=== PATIENT | male | born 1980 | race African-American/Black ===

== ENCOUNTER 2016-08-23 10:28 | Emergency (ER) | payer MEDICARE ==
[2016-08-23] MEDS ORDERED: Adacel (T-DAP) 0.5 ML VIAL ONE (10:43)
[2016-08-23] MEDS ORDERED: Bacitracin Zinc 1 Packet ONE (10:52)
== END 2016-08-23 11:15 | disposition home or self-care (01) ==
LOC: BURERS 10:28
DX: S61.302A Unspecified open wound of right middle finger with damage to nail, initial encounter (principal); F41.9 Anxiety disorder, unspecified; F32.9 Major depressive disorder, single episode, unspecified; F17.210 Nicotine dependence, cigarettes, uncomplicated; W45.8XXA Other foreign body or object entering through skin, initial encounter
CPT/HCPCS: 90471; 90715

== ENCOUNTER 2020-02-24 10:32 | Emergency (ER) | payer MEDICAID, MEDICARE ==
[2020-02-24 22:09] LABS: SARS-CoV-2 N Gene Positive; SARS-CoV-2 S Gene Positive; SARS-CoV-2 by NAA DETECTED (NotDetected); SARS-CoV-2 orf1ab Positive
[2020-02-24 22:10] LABS: SARS-CoV-2 MS2 Positive
== END 2020-02-24 11:30 | disposition home or self-care (01) ==
LOC: BURERS 10:32
DX: U07.1 COVID-19 (principal)
CPT/HCPCS: 87635; 87804; 99283; U0003

== ENCOUNTER 2021-06-08 12:24 | Emergency (ER) | payer MEDICARE, MEDICAID ==
[2021-06-08] MEDS ORDERED: Iopamidol 370 76% 100 ML VIAL FS ONE (12:25)
[2021-06-08] MEDS ORDERED: Ondansetron PF 4 MG/2 ML Vial ONE (12:39)
[2021-06-08] MEDS ORDERED: Ketorolac Tromethamine 30 MG/ML VIAL ONE (12:39)
[2021-06-08 13:06] LABS: #Basophils 0.1 thou/uL (0.0-0.2); #Eosinphils 0.1 thou/uL (0.0-0.7); #Lymphocytes 1.5 thou/uL (1.20-3.40); #Monocytes 0.4 thou/uL (0.11-0.59); #Neutrophils 3.8 thou/uL (1.40-6.50); %Basophils 1.7 % (0.0-1.0); %Eosinophils 2.2 % (0.0-10.0); %Monocytes 6.9 % (0.0-10.0); %Neutrophils 64.2 % (42.0-75.0); Hemoglobin 13.6 g/dL (14.0-18.0); Mean Corpuscular HGB CONC 33.5 g/dL (32.0-36.0); Mean Corpuscular Hemoglobin 28.1 pg (27.0-31.0); Mean Platelet Volume 7.1 fL (7.4-10.4); Platelet Count 231 thou/uL (130-400); RBC Distribution Width 12.9 % (11.5-14.5); Red Blood Cell (RBC) Count 4.85 mill/uL (4.70-6.10)
[2021-06-08 13:12] LABS: ALT (SGPT) 20 U/L (8-55); AST (SGOT) 24 U/L (5-34); Albumin 3.9 g/dL (3.5-5.0); Alkaline Phosphatase 87 U/L (40-110); Anion Gap 12 mmol/L (10-20); BUN (Urea Nitrogen) 11 mg/dL (8.9-20.6); Bilirubin, Total 0.3 mg/dL (0.2-1.2); CK (CPK) 473 U/L (30-200); Calc. Creatinine Clearance 0 mL/min (70-130); Calcium 8.8 mg/dL (7.8-10.44); Carbon Dioxide 24 mmol/L (22-29); Chloride 106 mmol/L (98-107); Globulin 3.2 g/dL (2.4-3.5); Glucose 130 mg/dL (70-105); Potassium 4.1 mmol/L (3.5-5.1); Protein, Total 7.1 g/dL (6.0-8.3); Sodium 138 mmol/L (136-145)
[2021-06-08] MEDS ORDERED: Orphenadrine Citrate 60 MG/2 ML VIAL ONE (14:28)
[2021-06-08] MEDS ORDERED: Piperacillin/Tazobactam 4.5 GM VIAL ONE (15:06)
[2021-06-08] MEDS ORDERED: Sodium Chloride 0.9% 100 ML ONE (15:07)
[2021-06-08 15:42] LABS: Bilirubin Negative (Negative); Blood, Urine Negative (Negative); Clarity Clear (Clear); Glucose, Urine (Dipstick) Negative (Negative); Ketone, Urine Negative (Negative); Leukocyte Negative (Negative); Nitrite Negative (Negative); Protein, Urine (Dipstick) Negative (Neg-Trace); Urobilinogen 0.2 mg/dL (Less than 2)
[2021-06-08 15:49] LABS: Cocaine Metabolite Screen Not Detected (NotDetected); Methamphetamine Detected (NotDetected); Phencyclidine (PCP) Not Detected (NotDetected); THC/Cannabinoid Screen Not Detected (NotDetected)
[2021-06-08 15:50] LABS: Amphetamine Detected (NotDetected); Barbiturates Screen Not Detected (NotDetected); Benzodiazepine Screen Not Detected (NotDetected); Medtox Control Line Valid? VALID (VALID); Methadone Not Detected (NotDetected); Opiate Screen Not Detected (NotDetected); Oxycodone Screen Not Detected (NotDetected); Tricyclic Screen Not Detected (NotDetected)
[2021-06-08 16:22] LABS: SARS-CoV-2 NAA Rapid Test Not Detected (NotDetected)
[2021-06-08] MEDS ORDERED: Morphine 4 MG/ML VIAL ONE (16:39)
== END 2021-06-08 16:58 | disposition short-term general hospital (02) ==
LOC: BURERS 12:24
DX: R10.813 Right lower quadrant abdominal tenderness (principal); E87.2 Acidosis; F19.10 Other psychoactive substance abuse, uncomplicated; G81.91 Hemiplegia, unspecified affecting right dominant side; Z20.822 Contact with and (suspected) exposure to COVID-19
CPT/HCPCS: 0240U; 72100; 72125; 72128; 74177; 80053; 80306; 81003; 82150; 82550; 83605; 83690; 85025; 86140; 87040; 87086; 94760; 36415; 96374; 96375; J1885; J2270; J2360; J2405; J2543; J3370; J3490; Q9967

== ENCOUNTER 2024-12-24 10:12 | Emergency (ER) | payer MEDICAID, MEDICARE ==
[2024-12-24] MEDS ORDERED: Tetracaine 0.5% PF 4 ML BOT ONE (10:22)
[2024-12-24] MEDS ORDERED: Fluorescein Opthalmic Strip ONE (10:22)
== END 2024-12-24 10:45 | disposition home or self-care (01) ==
LOC: BURERS 10:12
DX: S05.02XA Injury of conjunctiva and corneal abrasion without foreign body, left eye, initial encounter (principal); X58.XXXA Exposure to other specified factors, initial encounter
CPT/HCPCS: 99283